=== PATIENT | male | born 1955 ===

== ENCOUNTER 2025-04-17 10:11 | Inpatient (IN) | payer OTHER ==
[~2025-04-17] VITALS: Ht 167.6 cm; Wt 81.6 kg
[2025-04-17 10:07] VITALS: BP 176/69
[~2025-04-17 10:11] MED LIST: AMLODIPINE-OLM1 EAC3 PO; COZAAR100 MG PO; TENORMIN50 M1 PO
[2025-04-24] MEDS ORDERED: METRONIDAZOLE/SODIUM CHLORIDE 500 MG/100 ML PIGGYBACK IV ONE (06:00)
[2025-04-24] MEDS ORDERED: CEFTRIAXONE SODIUM 2,000 MG VIAL ONE (06:00)
[2025-04-24] MEDS ORDERED: BUPIVACAINE HCL/MPF 0.5% 30ML VIAL ONE (06:32)
[2025-04-24] MEDS ORDERED: LIDOCAINE HCL 1%/EPINEPHRINE 20ML VIAL IJ ONE (06:33)
[2025-04-24] MEDS ORDERED: SUGAMMADEX SODIUM 200 MG/2 ML VIAL IV ONE (09:07)
[2025-04-24] MEDS ORDERED: DEXTROSE 50 % IN WATER 0.5 G/ML DISP.SYRIN IV PRN (09:30)
[2025-04-24] MEDS ORDERED: ONDANSETRON HCL 2 MG/ML VIAL IV PRN (09:30)
[2025-04-24] MEDS ORDERED: MORPHINE SULFATE 4 MG/ML CARTRIDGE IV PRN (09:30)
[2025-04-24] MEDS ORDERED: 0.9 % SODIUM CHLORIDE 1,000 ML IV SCH (09:30)
[2025-04-24] MEDS ORDERED: OxyCODONE HCL 5 MG TABLET (ROXICODONE) PO PRN (09:30)
[2025-04-24 12:40] LABS: BASO % 0.2 % (0.1-1.2); EOS # 0.03 (0.04-0.54); EOS % 0.2 % (0.7-7.0); LYMPH # 0.94 (1.18-3.74); LYMPH % 7.7 % (19.3-53.1); MEAN PLATELET VOLUME 10.50 fl (9.4-12.4); MONO # 0.64 (0.24-0.82); MONO % 5.2 % (4.7-12.5); NEUT # 10.59 (1.56-6.13); NEUT % 86.3 % (34.0-71.1); RED CELL DISTRIBUTION WIDTH 13.1 % (11.6-14.4)
[2025-04-24] MEDS ORDERED: HYOSCYAMINE SULFATE 0.125 MG TAB.SUBL SL SCH (13:00)
[2025-04-24 13:12] LABS: BUN CREA RATIO 9.0 (7.0-25.0); CREATININE SERUM 0.77 mg/dL (0.70-1.30); GFR 99.59; GLUCOSE FASTING 151.0 mg/dL (65-100); OSMOLALITY SERUM 280.0 MOSM/KG (275-295)
[2025-04-24] MEDS ORDERED: ACETAMINOPHEN 500 MG GEL..CAP PO SCH (14:00)
[2025-04-24] MEDS ORDERED: GABAPENTIN 300 MG CAPSULE PO ONE (16:25)
[2025-04-24] MEDS ORDERED: HYOSCYAMINE SULFATE 0.125 MG TAB.SUBL ONE (16:25)
[2025-04-24] MEDS ORDERED: ENALAPRILAT DIHYDRATE 1.25 MG/ML VIAL IV ONE ×2 (16:43→17:09)
[2025-04-24] MEDS ORDERED: GABAPENTIN 300 MG CAPSULE PO SCH (17:00)
[2025-04-24 18:20] VITALS: BP 167/76; O2SAT 95
[2025-04-24] MEDS ORDERED: CELECOXIB 200 MG CAPSULE PO SCH (21:00)
[2025-04-24] MEDS ORDERED: FAMOTIDINE/PF 20 MG/2 ML VIAL IV PUSH SCH (21:00)
[2025-04-25] VITALS: BP 142/77; O2SAT 98
[2025-04-25 06:51] LABS: BASO % 0.2 % (0.1-1.2); EOS # 0.05 (0.04-0.54); EOS % 0.4 % (0.7-7.0); LYMPH # 1.47 (1.18-3.74); LYMPH % 11.2 % (19.3-53.1); MEAN PLATELET VOLUME 10.60 fl (9.4-12.4); MONO # 0.98 (0.24-0.82); MONO % 7.5 % (4.7-12.5); NEUT # 10.51 (1.56-6.13); NEUT % 80.4 % (34.0-71.1); RED CELL DISTRIBUTION WIDTH 13.0 % (11.6-14.4)
[2025-04-25 07:48] LABS: BUN CREA RATIO 11.0 (7.0-25.0); CREATININE SERUM 0.66 mg/dL (0.70-1.30); GFR 118.98; GLUCOSE FASTING 91.0 mg/dL (65-100); OSMOLALITY SERUM 284.0 MOSM/KG (275-295)
[2025-04-25 08:09] VITALS: BP 165/72; O2SAT 95
[2025-04-25] MEDS ORDERED: FAMOTIDINE/PF 20 MG/2 ML VIAL IV SCH (09:00)
[2025-04-25] MEDS ORDERED: PANTOPRAZOLE SODIUM 40 MG/VIAL VIAL IV SCH (09:00)
[2025-04-25] MEDS ORDERED: SUCRALFATE 1 G TABLET PO SCH (09:00)
[2025-04-25 16:20] VITALS: BP 178/79; O2SAT 97
[2025-04-25] MEDS ORDERED: AMINO ACIDS/PROTEIN HYDROLYS 30 ML BLIST.PACK PO SCH (17:00)
[2025-04-25] MEDS ORDERED: ENOXAPARIN SODIUM 40 MG/0.4 ML SYRINGE SUBCUTANEO SCH (17:00)
[2025-04-26 00:46] VITALS: BP 141/79; O2SAT 96
[2025-04-26 07:47] LABS: BUN CREA RATIO 14.0 (7.0-25.0); CREATININE SERUM 0.56 mg/dL (0.70-1.30); GFR 143.82; GLUCOSE FASTING 86.0 mg/dL (65-100); OSMOLALITY SERUM 284.0 MOSM/KG (275-295)
[2025-04-26 07:48] LABS: BASO % 0.6 % (0.1-1.2); EOS # 1.04 (0.04-0.54); EOS % 9.5 % (0.7-7.0); LYMPH # 1.32 (1.18-3.74); LYMPH % 12.0 % (19.3-53.1); MEAN PLATELET VOLUME 11.20 fl (9.4-12.4); MONO # 0.91 (0.24-0.82); MONO % 8.3 % (4.7-12.5); NEUT # 7.59 (1.56-6.13); NEUT % 69.3 % (34.0-71.1); RED CELL DISTRIBUTION WIDTH 13.0 % (11.6-14.4)
[2025-04-26 08:50] VITALS: BP 178/84; O2SAT 95
[2025-04-26] MEDS ORDERED: LOSARTAN POTASSIUM 100 MG TABLET PO SCH (09:00)
[2025-04-26] MEDS ORDERED: ATENOLOL 50 MG TABLET PO SCH (09:00)
[2025-04-26] MEDS ORDERED: ENOXAPARIN SODIUM 40 MG/0.4 ML SYRINGE SUBCUTANEO SCH (09:00)
[2025-04-26] MEDS ORDERED: AMLODIPINE BESYLATE 10 MG TABLET PO SCH ×2 (09:00→21:00)
[2025-04-26 17:12] VITALS: BP 169/77; O2SAT 97
[2025-04-26] MEDS ORDERED: ENALAPRILAT DIHYDRATE 2.5 MG/2 ML VIAL IV PRN (17:30)
[2025-04-26 23:52] VITALS: BP 143/78; O2SAT 97
[2025-04-27 08:46] VITALS: BP 174/72; O2SAT 97
[2025-04-27] MEDS ORDERED: HYOSCYAMINE0.125 M1 SL (09:08)
[2025-04-27] MEDS ORDERED: INTESTINEX680 M1 PO (09:08)
== END 2025-04-27 11:18 | disposition home or self-care (01) | DRG 330 ==
LOC: SURH 04-24 06:00 → O/R 04-24 06:00 → SURH 04-24 11:00
PROVIDERS: ADMIT Surgery; ATTEND Surgery
PROC: 07BB4ZZ Excision of Mesenteric Lymphatic, Percutaneous Endoscopic Approach (ICD-10-PCS; 2025-04-24)
PROC: 0DTF4ZZ Resection of Right Large Intestine, Percutaneous Endoscopic Approach (ICD-10-PCS; principal; 2025-04-24 11:45)
DX: C18.2 Malignant neoplasm of ascending colon (principal); C77.2 Secondary and unspecified malignant neoplasm of intra-abdominal lymph nodes; K92.1 Melena; R19.4 Change in bowel habit